=== PATIENT | female | born 1990 | race Asian ===

== ENCOUNTER 2021-11-28 23:34 | Emergency (ER) | payer OTHER ==
[~2021-11-28] VITALS: Ht 152.4 cm; Wt 59.0 kg
[2021-11-28 23:38] VITALS: BP_SYST 122
--- NOTE | 2021-11-28 23:43 | NUR ---
PATIENT HAS RASH ON LEFT LEG AND LOWER BACK AFTER PAINFUL SPOTS FOR FOUR DAYS.
--- NOTE | 2021-11-29 | NUR ---
Patient to ER bed 06 to gown for evaluation. Side rails up.
--- NOTE | 2021-11-29 00:42 | NUR ---
PT CAME FROM HOME WITH C/O OF RASH ON THE MEDIAL LEFT THIGH THAT RADIATES TO THE LEFT FLANK AREA AND STOPS AT THE SPINE. PT REPORTS THAT THE RASH STARTED ON THRUSDAY AND WORSENED THE LAST 2 DAYS. PT PLACED IN GOWN FOR EVALUATION.
[2021-11-29] MEDS ORDERED: predniSONE 20 MG TABLET PO ONE (02:15)
[2021-11-29] MEDS ORDERED: valACYclovir HCL 500 MG TABLET PO ONE (02:15)
[2021-11-29] MEDS ORDERED: VALA500T PO (02:22)
[2021-11-29] MEDS ORDERED: PRED10TA PO (02:27)
[2021-11-29 02:32] VITALS: BP_SYST 122
--- NOTE | 2021-11-29 02:32 | NUR ---
Patient given written and verbal discharge instructions and verbalizes understanding. ER MD discussed with patient the results and treatment provided. Patient in stable condition. ID arm band removed. Rx of given. Patient educated on pain management and to follow up with PMD. Pain Scale 0. Opportunity for questions provided and answered. Medication side effect fact sheet provided.
== END 2021-11-29 02:32 | disposition home or self-care (01) ==
LOC: SED 23:34
DX: B02.9 Zoster without complications (principal); R21 Rash and other nonspecific skin eruption; Z79.899 Other long term (current) drug therapy
CPT/HCPCS: 99283; 81025; J7512